=== PATIENT | female | born 1990 | race Caucasian/White ===

== ENCOUNTER 2022-01-01 17:04 | Inpatient (IN) | payer BC, SELFPAY ==
[2022-01-01 17:26] VITALS: PULSE 99; O2SAT 99
[2022-01-01 17:29] VITALS: RESP 18; TEMP 36.9
[2022-01-01 17:34] VITALS: BP 115/69; PULSE 95
[2022-01-01 17:54] VITALS: BMI 33.3
--- NOTE | 2022-01-01 18:18 | P.OBHP_ITS ---
OB - H&P: HPI Labor/Induction History of Present Illness Date Seen: 01/01/22 Chief Complaint: The patient is a 31 year old 2 para 1 at 40+2 weeks gestation by LMP and confirmed with 1st trimester US, who presents with elective induction at term. She has a history of shoulder dystocia with first baby. Chief complaint: Elective Induction : 2 Para: 1 Date of last menstrual period: 03/25/21 Estimated date of delivery: 12/30/21 Gestational age based on last menstrual period: 40 Narrative: Carolina Monae is a 31 year old female here for elective induction at term. has been uncomplicated. she is GBS negative, blood type 0 rH negative, rubella immune. History of Present Dating criteria: based on LMP care: good care Ultrasounds: normal 1st trimester US complications comment: anemia, treated with IV iorn Labs Rubella: immune RPR/VDLR: nonreactive GBS status: negative HBsAG: negative Review of Systems Status of ROS: Reports: 10 or more systems reviewed and unremarkable except as noted in History and below Meds Home Medications and Allergies Home Medication Comments: vitamins OB - H&P: Exam Physical Exam: Vital signs: Temp Pulse Resp BP Pulse Ox 98.5 F 95 18 115/69 99 01/01/22 17:29 01/01/22 17:34 01/01/22 17:29 01/01/22 17:34 01/01/22 17:26 Constitutional: Constitutional: no acute distress Routine HEENT Exam: Head: Present atraumatic and normal inspection Eye: Present EOMI ENT: Present mucous membranes moist Routine Neck Exam: Neck: Present full ROM Routine Respiratory Exam: Respiratory: Present CTA bilaterally Routine Cardiovascular Exam: Cardiovascular: RRR Routine Abdominal Exam: Comments: Gravid, appropriate for gestational age. EFW 8 pounds. Detailed Labor and Delivery Exam: Patient Gravid: yes Dilation (cm): 2 Effacement (%): 40 Cervix position: mid Consistency: soft Cervical ripeness score: 5 Contraction frequency (min): 0 Fetus (Single): Station: -3 Monitor Accelerations: Present Monitor Decelerations: None Nursing Home Variability: Moderate (11-25) Routine Extremities Exam: Comments: No swelling or tenderness Routine Skin Exam: Present intact Routine Neurological Exam: Present alert, oriented X3 and CN II-XII intact Routine Psychiatric Exam: Present normal affect OB - Problem Based A/P Additional Plan (1) Term : Status: Acute Plan Cook catheter placed without difficulty. 60 mL in both intrauterine and intravaginal balloons. Low dose pitocin overnight. AROM in the AM with continued pitocin. Delivery/Labor/Induction Plan Plan: induction Induction method: Intracervical balloon catheter
[2022-01-01 18:57] LABS: SARS PCR* Negative SARS-CoV-2 (Negative)
[2022-01-01 19:15] VITALS: BP 120/75; PULSE 90; RESP 16; TEMP 37.1
[2022-01-01] MEDS: hydrOXYzine pamoate 25 MG CAPSULE 100 MG PO (19:58)
[2022-01-01 23:23] VITALS: RESP 16; TEMP 36.6
[2022-01-01 23:24] VITALS: BP 136/76; PULSE 100
[2022-01-01] MEDS: LACTATED RINGERS 1000 ML 1,000 ML 125 ML IV (23:43)
[2022-01-01 23:50] LABS: Basophils Absolute Auto 0.03 K/uL (0.00-0.30); Basophils Percent Auto 0.3 % (0.0-3.0); Eosinophils Absolute Auto 0.09 K/uL (0.00-0.50); Hemoglobin* 10.9 gm/dL (12.0-16.0); Immature Granulocytes Abs Auto 0.06 K/uL (0.00-0.30); Lymphocytes Percent Auto 17.5 % (20-44); Mean Corpuscular HGB Conc 33 gm/dL (32-36); Mean Corpuscular Hemoglobin 28 pg (26-34); Mean Corpuscular Volume 84 fL (80-100); Monocytes Percent Auto 5.1 % (0.0-11.0); Neutrophils Percent Auto 75.4 % (42.0-72.0); Platelet Count* 196 K/uL (140-440); RDW Coefficient of Variation % 18.8 % (11.5-15.5); Red Blood Count 3.94 m/uL (4.00-5.20); White Blood Count* 8.69 K/uL (4.50-11.00)
[2022-01-01 23:51] LABS: Slide Review Reflex No
[2022-01-02] VITALS (74 sets, daily range): BP systolic 87–147; BP diastolic 50–113; PULSE 80–122; RESP 16–18; TEMP 36.3–37.5; O2SAT 96–100
[2022-01-02] MEDS: OXYTOCIN 30 unit/500 ML in NS 30 UNIT/500 ML BAG IVPB (00:24)
[2022-01-02] MEDS: LACTATED RINGERS 1000 ML 1,000 ML 125 ML IV (04:15)
[2022-01-02] MEDS: ROPIVACAINE 0.2% 100 ml 100 ML 12 MG EPIDURAL ×2 (06:08→14:12)
--- NOTE | 2022-01-02 06:23 | P.ANBPRC_ITS ---
[facility] Social History Smoking Status: Never smoker Meds Home Medications and Allergies Home Medications Medication Instructions Recorded Confirmed Type vit no.95-ferrous 1 tab PO DAILY 01/01/22 01/01/22 History fumarate 28 mg-folic acid 800 mcg tablet () Allergies Allergy/AdvReac Type Severity Reaction Status Date / Time lactose Allergy Mild Gastrointestinal Verified 01/01/22 19:42 Upset Results Labs Labs: Laboratory Results - last 24 hr 01/01/22 01/01/22 01/01/22 17:21 23:40 23:40 WBC 8.69 RBC 3.94 L Hgb 10.9 L Hct 33.0 MCV 84 MCH 28 MCHC 33 RDW Coeff of Fernanda 18.8 H Plt Count 196 Neut % (Auto) 75.4 H Lymph % (Auto) 17.5 L [place] % (Auto) 5.1 Eos % (Auto) 1.0 Baso % (Auto) 0.3 Neut # (Auto) 6.60 Lymph # (Auto) 1.50 [place] # (Auto) 0.40 Eos # (Auto) 0.09 Baso # (Auto) 0.03 Abs Immat Gran (auto) 0.06 SARS-CoV-2 (PCR) Negative SARS-CoV-2 Blood Type O Negative Antibody Screen NEGATIVE Vital Signs Vital Signs: Last Vital Signs Temp 98.4 F 01/02/22 05:25 Pulse 94 01/02/22 06:20 Resp 18 01/02/22 05:25 BP 98/54 L 01/02/22 06:20 Pulse Ox 100 01/02/22 06:03 Weight: 96.434 kg Height: 170.18 cm Anesthesia Procedures Epidural Insertion Patient Location: OB Start Time: 05:45 Stop Time: 06:45 Start Date: 01/02/22 Stop Date: 01/02/22 Reason for Block: procedure for pain Patient Position: sitting Performed By: Barry Blas Preanesthetic Checklist: IV checked, risks and benefits discussed, surgical consent, monitors and equipment checked, pre-op evaluation, timeout performed and anesthesia consent Prep: chlorhexidine gluconate Monitoring: blood pressure monitoring, continuous pulse oximetry and heart rate Approach: midline Vertebral Space: lumbar (1-5) Epidural Technique: RICK saline Needle Type: Tuohy needle Injection Technique: continuous catheter Needle gauge: 18 Needle Length (cm): 10 cm Needle Insertion Depth (cm): 6 Catheter Gauge: 20 Catheter Type: multi-orifice Catheter at skin depth (cm): 13 Test Dose Result: negative and lidocaine 1.5% with epinephrine 1 to 200,000
[2022-01-02] MEDS: LACTATED RINGERS 1000 ML 1,000 ML 525 ML IV (07:04)
--- NOTE | 2022-01-02 07:15 | PM.OBPNL ---
Pain Control Date Seen: 01/02/22 Pain control: epidural Comments: Carolina is doing well. She had SROM around 0420, cook catheter removed. Contractions became more uncomfortable at that time and epidural requested. She is now comfortable and resting. Contractions Monitor mode: External Contraction frequency: 2 Contraction pattern: Regular Contraction intensity: Moderate Pelvic Exam Dilation (cm): 7 Effacement (%): 70 Station: -2 Fetus (Single) Amniotic Membrane Status: SROM status: Category l Assessment and Plan Pitocin rate (mU/min): 5 Assessment: induction ongoing Plan: continue present management
[2022-01-02] MEDS: ONDANSETRON 2 MG/ML inj 4 MG IV (11:15)
--- NOTE | 2022-01-02 12:49 | PM.OBPNL ---
Pain Control Time Seen by Provider: 12:49 Date Seen: 01/02/22 Pain control: epidural Comments: Patient feeling more pressure. Epidural still working well for pain relief. She was noted to be 8/80/-2 with forebag. Underwent AROM with clear fluid. Contractions Monitor mode: External Contraction frequency: 2 Contraction pattern: Regular Contraction intensity: Moderate Pelvic Exam Dilation (cm): 8 Effacement (%): 80 Station: -2 Fetus (Single) Amniotic Membrane Status: SROM status: Category l Comments: AROM forebag, clear fluid Assessment and Plan Pitocin rate (mU/min): 0 Assessment: active labor Plan: continue present management Comments: Anticipate
--- NOTE | 2022-01-02 15:13 | PM.OBPRCVD ---
Procedure Delivery date: 01/02/22 Procedure Done: Global Events: Labor Induction Intrapartal Events: None Induction method: Intracervical balloon catheter Delivery augmentation: rupture of membranes (Forebag) Delivery monitor: external FHT and external uterine Route of delivery: Laceration description: Perineal - 1st Degree Delivery repair: Vicryl Estimated blood loss (mL): 100 Anesthesia type: Epidural Disposition: floor Narrative: Stage 1: Carolina is a who presented for IOL at 40+2 weeks. Dating based on known LMP and confirmed with first trimester US. She underwent cook catheter placement on the 01/01 and low dose piocin was started on 0000 on 01/02. She had SROM at 0423 and contractions became stronger at that time. She had an epidural for labor analgesia at 0600 and reached 10 cm at 1421 and she started pushing at 1432. Stage 2: A viable male infant was born at 1443 over an intact perineum. There was a loose nuchal cord reduced at the perineum and a second nuchal cord which delivered through. was placed on mom's abdomen. Due to poor respiratory effort, cord immediately doubly clamped and cut. brought to the warmer where he immediately cried. Stage 3: IV pitocin turned up after delivery of infant. And intact placenta with 3 vessel cord delivered at 1447. There was a 1st degree perineal laceration repaired in the usual fashion and sponge and need counts were correct. weight 9#7oz and apgars 6 and 9 at 1 and 5 minutes respectively. [place] Infant Gender: Male presentation: vertex Placental Delivery Description: Spontaneous Cord Description: 3 Vessels OB Vag Delivery Procedures Additional Procedures Cook Catheter Insertion: Yes Laceration Repair: Yes
[2022-01-02] MEDS: ACETAMINOPHEN 500 MG TABLET 1000 MG PO (20:07)
[2022-01-02] MEDS: IBUPROFEN 600 MG TABLET PO (22:09)
[2022-01-03] MEDS: ACETAMINOPHEN 500 MG TABLET 1000 MG PO ×2 (01:48→09:36)
[2022-01-03 01:50] VITALS: BP 103/68; PULSE 96; RESP 18; TEMP 36.6; O2SAT 97
[2022-01-03 03:40] VITALS: BP 110/75; PULSE 87; RESP 16; TEMP 36.8; O2SAT 97
[2022-01-03] MEDS: IBUPROFEN 600 MG TABLET PO (06:34)
[2022-01-03 07:12] LABS: Hemoglobin* 10.2 gm/dL (12.0-16.0)
--- NOTE | 2022-01-03 07:56 | P.DS_ITS ---
DS: Providers Provider Date Seen: 01/03/22 Date of admission: 01/01/22 17:04 Primary care physician: Tiffany Griffin MD Admitting Clinician: Tiffany Griffin MD Attending Physician on discharge: Tiffany Griffin MD Date of Discharge: 01/03/22 DS: Diagnosis Discharge Diagnosis (1) Vaginal delivery: Status: Acute DS: Medications Discharge Medications Other Medication Instructions: I will send in a Rx for zoloft Exam Const: Vital Signs, click to edit/add: Vital Signs - 24 hr 01/02/22 08:05 01/02/22 08:22 01/02/22 08:22 Temperature 98.4 F Pulse Rate 88 88 Pulse Rate [Pulse Oximeter] Respiratory Rate Blood Pressure 129/64 129/71 Blood Pressure [Ri ght Arm] Pulse Oximetry [facility] 01/02/22 08:36 01/02/22 08:50 01/02/22 09:23 Temperature Pulse Rate 89 94 82 Pulse Rate [Pulse Oximeter] Respiratory Rate Blood Pressure 128/70 129/69 92/50 L Blood Pressure [Ri ght Arm] Pulse Oximetry Oxygen Delivery [facility] 01/02/22 09:35 01/02/22 09:51 01/02/22 09:53 Temperature Pulse Rate 88 90 98 Pulse Rate [Pulse Oximeter] Respiratory Rate Blood Pressure 91/51 L 89/53 L 97/55 L Blood Pressure [Ri ght Arm] Pulse Oximetry [facility]xygen Delivery [facility] 01/02/22 10:07 01/02/22 10:21 01/02/22 10:36 Temperature Pulse Rate 96 94 101 H Pulse Rate [Pulse Oximeter] Respiratory Rate Blood Pressure 106/54 L 90/50 L 92/54 L Blood Pressure [Ri ght Arm] Pulse Oximetry Oxygen Delivery [facility] 01/02/22 10:51 01/02/22 10:53 01/02/22 11:13 Temperature Pulse Rate 117 H 110 H 86 Pulse Rate [Pulse Oximeter] Respiratory Rate Blood Pressure 87/51 L 91/55 L 108/58 L Blood Pressure [Ri ght Arm] Pulse Oximetry Oxygen Delivery [facility] 01/02/22 11:25 01/02/22 11:36 01/02/22 11:52 Temperature Pulse Rate 105 H 106 H 96 Pulse Rate [Pulse Oximeter] Respiratory Rate Blood Pressure 118/56 L 112/59 L 108/58 L Blood Pressure [Ri ght Arm] Pulse Oximetry Oxygen Delivery [facility] 01/02/22 12:06 01/02/22 12:21 01/02/22 12:36 Temperature Pulse Rate 109 H 112 H 116 H Pulse Rate [Pulse Oximeter] Respiratory Rate Blood Pressure 114/70 113/60 113/61 Blood Pressure [Ri ght Arm] Pulse Oximetry Oxygen Delivery [facility] 01/02/22 12:52 01/02/22 13:05 01/02/22 13:21 Temperature Pulse Rate 109 H 105 H 107 H Pulse Rate [Pulse Oximeter] Respiratory Rate Blood Pressure 122/70 118/67 120/64 Blood Pressure [Ri ght Arm] Pulse Oximetry Oxygen Delivery [facility] 01/02/22 13:36 01/02/22 13:51 01/02/22 14:06 Temperature Pulse Rate 105 H 114 H 102 H Pulse Rate [Pulse Oximeter] Respiratory Rate Blood Pressure 122/58 L 125/71 104/51 L Blood Pressure [Ri ght Arm] Pulse Oximetry Oxygen Delivery [facility] 01/02/22 14:22 01/02/22 14:37 01/02/22 14:51 Temperature Pulse Rate 108 H 103 H 112 H Pulse Rate [Pulse Oximeter] Respiratory Rate Blood Pressure 105/53 L 122/67 122/61 Blood Pressure [Ri ght Arm] Pulse Oximetry Oxygen Delivery [facility] 01/02/22 15:06 01/02/22 15:21 01/02/22 15:36 Temperature Pulse Rate 111 H 94 Pulse Rate [Pulse Oximeter] Respiratory Rate Blood Pressure 120/76 135/62 138/70 Blood Pressure [Ri ght Arm] Pulse Oximetry Oxygen Delivery [facility] 01/02/22 15:50 01/02/22 16:10 01/02/22 16:13 Temperature Pulse Rate 104 H 105 H 110 H Pulse Rate [Pulse Oximeter] Respiratory Rate Blood Pressure 125/79 147/113 H 121/59 L Blood Pressure [Ri ght Arm] Pulse Oximetry Oxygen Delivery [facility] 01/02/22 16:20 01/02/22 16:35 01/02/22 16:50 Temperature Pulse Rate 109 H 111 H 122 H Pulse Rate [Pulse Oximeter] Respiratory Rate Blood Pressure 122/68 124/61 131/69 Blood Pressure [Ri ght Arm] Pulse Oximetry Oxygen Delivery [facility] 01/02/22 17:05 01/02/22 17:12 01/02/22 09:08 Temperature 97.6 F Pulse Rate 116 H 116 H Pulse Rate [Pulse Oximeter] Respiratory Rate 16 Blood Pressure 121/63 118/64 Blood Pressure [Ri ght Arm] Pulse Oximetry Oxygen Delivery [facility] 01/02/22 10:53 01/02/22 14:00 01/02/22 20:00 Temperature 98.8 F 99.5 F 99.5 F Pulse Rate Pulse Rate [Pulse Oximeter] 112 H Respiratory Rate 16 16 Blood Pressure Blood Pressure [Ri ght Arm] 121/75 Pulse Oximetry 96 Oxygen Delivery [facility] Room Air 01/03/22 01:50 01/03/22 03:40 Temperature 97.9 F 98.3 F Pulse Rate Pulse Rate [Pulse Oximeter] 96 87 Respiratory Rate 18 16 Blood Pressure Blood Pressure [Ri ght Arm] 103/68 110/75 Pulse Oximetry 97 97 Oxygen Delivery [facility] Room Air Room Air Common normals: no apparent distress General appearance: cooperative and comfortable GI: Common normals: soft to palpation Palpation: soft : Other: Uterus firm 2 cm below umbilicus Extremity: Common normals: no calf tenderness and no pedal edema OB - DS: Summary Hospital Course Hospital Course: The patient is a 31 year old G 2 P 2 at 40+3 weeks gestation that was admitted to the Center on 01/01/22 for IOL at term. She had an uncomplicated vaginal delivery. She delivered a viable male infant. She is breast feeding. the patient has done well. Peripartum Data Infant delivery method: Vaginal Laceration description: Perineal - 1st Degree Episiotomy description: Midline complications: none [place] Infant Gender: Male Discharge Plan: Home Time Spent with Patient Time attestation: Total time spent providing and/or coordinating discharge services: Time spent: Less than 30 minutes Discharge Plan Discharge Disposition: Home, Self-Care Date of Admission: 01/01/22 17:04 Primary Care Provider: Tiffany Griffin Condition: Stable Anticipated Discharge Date/Time: 01/03/22 08:04 Discharge Medications: Continued PNV cmb#95-ferrous fumarate-FA [] 28 mg iron- 800 mcg tablet 1 tab PO DAILY Discharge Orders: Discharge Order (Routine); Ordered 01/03/22 Ordered By: Tiffany Griffin Patient Education: OB Vaginal/Breast Feeding Follow Up Appointments: Tiffany Griffin MD [Primary Care Provider] - Forms: [employer] Info Instructions
[2022-01-03 08:55] VITALS: BP 104/70; PULSE 92; RESP 16; TEMP 36.9; O2SAT 97
[2022-01-03] MEDS: DOCUSATE SODIUM 100 MG CAPSULE PO (09:36)
[2022-01-03 12:47] VITALS: BP 105/71; PULSE 88; RESP 16; TEMP 36.3; O2SAT 98
== END 2022-01-03 16:30 | disposition home or self-care (01) | DRG 560 ==
PROVIDERS: Admitting Provider Family Medicine; PCP Family Medicine; Visit Provider Family Medicine
DX: O48.0 Post-term pregnancy (principal); O70.0 First degree perineal laceration during delivery; O99.02 Anemia complicating childbirth; D64.9 Anemia, unspecified; Z3A.40 40 weeks gestation of pregnancy; Z37.0 Single live birth
CPT/HCPCS: 01967; 36415; 59200; 85018; 85025; 86850; 86900; 86901; 87635; A9270; C1726; J2405; J2795; J7120; S0020

== ENCOUNTER 2023-07-28 16:55 | Outpatient (CLI) | payer BC, SELFPAY ==
[2023-07-28 18:06] VITALS: BP 123/68; PULSE 95; RESP 16; TEMP 36.3
--- NOTE | 2023-07-28 19:17 | PC.OBNST ---
NST Note NST Note Start: 07/28/23 19:15 Freq: ONCE Status: Active Protocol: Document 07/28/23 19:15 ABP (Rec: 07/28/23 19:17 ABP [id number]) NST Note 3 Para (# of births) 2 EDC 08/09/23 Gestational Age In Weeks & Days 38 Weeks & 2 Days Patient Presented with Complaint(s) of Contractions/cramping Reactive Yes RN Jerel Olson RN Date 07/28/23 Reactive Yes SCOTT Nguyen, RN OB NST charge Yes Complete NST Note via Write Note Yes The provider's electronic signature indicates the NST is reactive/appropriate for gestational age. *Note to provider: If an addendum is required, open the patient's chart and click on the note under the Nurse/Allied Health tab.
== END 2023-07-28 19:11 | disposition home or self-care (01) ==
LOC: OB OUT 17:00 → OB 19:11
PROVIDERS: PCP Family Medicine; Visit Provider Family Medicine
DX: O47.1 False labor at or after 37 completed weeks of gestation (principal); Z3A.38 38 weeks gestation of pregnancy
CPT/HCPCS: 59025; G0463

== ENCOUNTER 2023-08-06 05:59 | Inpatient (IN) | payer BC, SELFPAY ==
[2023-08-06] VITALS (53 sets, daily range): BP systolic 99–193; BP diastolic 56–119; PULSE 72–176; RESP 14–18; TEMP 36.3–36.9; O2SAT 98–100; BMI 33.0
--- NOTE | 2023-08-06 06:47 | PM.OBHPLI ---
OB - H&P: HPI Labor/Induction History of Present Illness Date Seen: 08/06/23 Chief Complaint: The patient is a 33 year old 3 para 2 at 39+4 weeks gestation by LMP and confirmed with US, who presents for elective IOL. Chief complaint: Elective Induction Narrative: Carolina Monae is a 33 year old at 39+4 weeks for elective IOL. has been uncomplicated. She is GBS negative, rH negative, rubella immune. She reports no regular contractions or LOF. She does have a history of shoulder dystocia with her first delivery. EFW at 36 weeks 3147g (77%). She underwent AROM with return of a large amount of clear fluid. History of Present Dating criteria: based on LMP care: good care Ultrasounds: normal 1st trimester US and normal mid trimester US Medical complications: none Labs Blood type: 0 (-) negative Rubella: immune RPR/VDLR: nonreactive GBS status: negative HBsAG: negative Review of Systems Status of ROS: Reports: 6 or more systems reviewed and unremarkable except as noted in History and below Meds Home Medications and Allergies Home Medications Medication Instructions Recorded Confirmed Type vit no.95-ferrous 1 tab PO DAILY 01/01/22 08/06/23 History fumarate 28 mg-folic acid 800 mcg tablet () Allergies Allergy/AdvReac Type Severity Reaction Status Date / Time lactose Allergy Mild Gastrointestinal Verified 07/28/23 18:04 Upset OB - H&P: Exam Constitutional: Constitutional: no acute distress Routine HEENT Exam: Head: Present atraumatic Eye: Present EOMI and PERRL ENT: Present mucous membranes moist Routine Neck Exam: Neck: Present full ROM Routine Respiratory Exam: Respiratory: Present CTA bilaterally Routine Cardiovascular Exam: Cardiovascular: RRR Routine Exam: Perineum Description: Normal Detailed Labor and Delivery Exam: Patient Gravid: Yes Dilation (cm): 4 Effacement (%): 40 Cervix position: posterior Consistency: soft Cervical ripeness score: 7 Fetus (Single): Station: -2 Amniotic Membrane Status: AROM Amniotic Membrane Fluid Description: Clear Heart Rate Baseline: 130 Monitor Accelerations: Present Monitor Decelerations: None [employer] Variability: Moderate (6-25) Routine Extremities Exam: Extremities: Present full ROM Routine Skin Exam: Present intact and normal turgor Routine Neurological Exam: Present alert, oriented X3 and CN II-XII intact Routine Psychiatric Exam: Present normal affect OB - Problem Based A/P Additional Plan (1) Term : Status: Acute Plan Patient has undergone AROM, if she does not go into labor, will start pitocin. Epidural per patient request. Anticipate . Delivery/Labor/Induction Plan Induction method: AROM
[2023-08-06 07:08] LABS: Basophils Absolute Auto 0.03 K/uL (0.00-0.30); Basophils Percent Auto 0.5 % (0.0-3.0); Eosinophils Absolute Auto 0.06 K/uL (0.00-0.50); Hematocrit 31.8 % (33.0-51.0); Hemoglobin* 10.2 gm/dL (12.0-16.0); Lymphocytes Absolute Auto 1.28 K/uL (0.90-2.90); Lymphocytes Percent Auto 21.6 % (20-44); Mean Corpuscular HGB Conc 32 gm/dL (32-36); Mean Corpuscular Hemoglobin 25 pg (26-34); Mean Corpuscular Volume 78 fL (80-100); Monocytes Percent Auto 5.4 % (0.0-11.0); Neutrophils Absolute Auto 4.24 K/uL (1.7-7.0); Neutrophils Percent Auto 71.5 % (42.0-72.0); Platelet Count* 213 K/uL (140-440); RDW Coefficient of Variation % 14.8 % (11.5-15.5); Red Blood Count 4.06 m/uL (4.00-5.20); White Blood Count* 5.93 K/uL (4.50-11.00)
[2023-08-06 07:09] LABS: Slide Review Reflex No
[2023-08-06] MEDS: LACTATED RINGERS 1000 ML 1,000 ML 125 ML IV ×2 (12:11→15:53)
[2023-08-06] MEDS: OXYTOCIN 30 unit/500 ML in NS 30 UNIT/500 ML BAG IVPB (12:13)
[2023-08-06] MEDS: ACETAMINOPHEN 500 MG TABLET 1000 MG PO ×2 (12:25→21:34)
--- NOTE | 2023-08-06 14:58 | P.ANBPRC_ITS ---
[facility] Medical History (Updated 08/06/23 @ 06:57 by Tiffany Griffin MD) Term ?Z34.90 - Encounter for supervision of normal , unspecified, unspecified trimester (ICD-10) Vaginal delivery ?O80 - Encounter for full-term uncomplicated delivery (ICD-10) Social History What is your current living situation?: I presently have a place to live Problems where you live: no known problems In the past 12 months, utilities in danger of being shut off: no In past 12 months, lack of transportation kept you from medical appts, meetings, work, or getting things needed for daily living: no In the past 12 mos, have been you worried that your food would run out before you had money to buy more?: never true In the past 12 mos, the food you bought just didn't last and you didn't have money to buy more?: never true Smoking Status: Never smoker How often does anyone, including family, friends and others, physically hurt you : never How often does anyone, including family, friends and others, insult or talk down to you: never How often does anyone, including family, friends and others, threaten you with harm: never How often does anyone, including family, friends and others, scream or curse at you: never Meds Home Medications and Allergies Home Medications Medication Instructions Recorded Confirmed Type vit no.95-ferrous 1 tab PO DAILY 01/01/22 08/06/23 History fumarate 28 mg-folic acid 800 mcg tablet () Allergies Allergy/AdvReac Type Severity Reaction Status Date / Time lactose Allergy Mild Gastrointestinal Verified 07/28/23 18:04 Upset Results Labs Labs: Laboratory Results - last 24 hr 08/06/23 06:52 WBC 5.93 RBC 4.06 Hgb 10.2 L Hct 31.8 L MCV 78 L MCH 25 L MCHC 32 RDW Coeff of Fernanda 14.8 Plt Count 213 Neut % (Auto) 71.5 Lymph % (Auto) 21.6 [place] % (Auto) 5.4 Eos % (Auto) 1.0 Baso % (Auto) 0.5 Neut # (Auto) 4.24 Lymph # (Auto) 1.28 [place] # (Auto) 0.30 Eos # (Auto) 0.06 Baso # (Auto) 0.03 Abs Immat Gran (auto) 0.00 Imm/Tot Granulo (auto) 0.0 Blood Type O Negative Antibody Screen POSITIVE Vital Signs Vital Signs: Last Vital Signs Temp 98.4 F 08/06/23 13:06 Pulse 91 08/06/23 14:57 BP 122/70 08/06/23 14:57 Pulse Ox 99 08/06/23 14:56 Weight: 95.708 kg Height: 170.18 cm Anesthesia Procedures Epidural Insertion Patient Location: OB Start Time: 14:15 Stop Time: 14:59 Start Date: 08/06/23 Stop Date: 08/06/23 Reason for Block: procedure for pain Patient Position: sitting Performed By: Melchor Diaz Preanesthetic Checklist: IV checked, risks and benefits discussed, monitors and equipment checked, pre-op evaluation, timeout performed and anesthesia consent Prep: chlorhexidine gluconate Monitoring: blood pressure monitoring, continuous pulse oximetry and heart rate Approach: midline Vertebral Space: lumbar (1-5) Epidural Technique: RICK saline Needle Type: Tuohy needle Injection Technique: continuous catheter Needle gauge: 17 Needle Length (cm): 10 cm Needle Insertion Depth (cm): 7 Catheter Gauge: 19 Catheter Type: multi-orifice Catheter at skin depth (cm): 13 Test Dose Result: negative and lidocaine 1.5% with epinephrine 1 to 200,000
[2023-08-06] MEDS: ROPIVACAINE 0.2% 100 ml 100 ML 12 MG EPIDURAL (15:03)
--- NOTE | 2023-08-06 16:04 | PM.OBPNL ---
Subjective Date Seen: 08/06/23 Narrative: Carolina is a at 39+4 weeks here for elective IOL. She underwent AROM at about 0630 and was subsequently having contractions, however they remained mild with minimal cervical change after 4 hours. IV pitocin was started and this caused increased intensity and patient received an epidural for labor analgesia. She is now comfortable, but feeling rectal pressure. Objective Vital Signs: Last Vital Signs Temp 97.4 F L 08/06/23 15:04 Pulse 95 08/06/23 16:00 BP 99/58 L 08/06/23 16:00 Pulse Ox 99 08/06/23 15:26 Pelvic Exam Dilation (cm): 7 Effacement (%): 60 Station: -1 Contractions Monitor mode: External Contraction Frequency: 2-3 Contraction pattern: Regular Contraction intensity: Strong/Firm Pitocin Rate (mU/min): 4 Assessment Assessment: active labor Station: -2 Amniotic Membrane Status: AROM Status: Category l Heart Rate Baseline: 120 Manager Workers Compensation Variability: Moderate (6-25) Monitor Accelerations: Present Monitor Decelerations: None Plan Plan: Continue pitocin per protocol. Anticipate .
[2023-08-06] MEDS: ONDANSETRON 2 MG/ML inj 4 MG IV (17:07)
--- NOTE | 2023-08-06 17:26 | P.OBPN_ITS ---
Subjective Date Seen: 08/06/23 Narrative: Carolina is feeling some rectal pressure and is starting to feel contractions as well. Having nausea and a mild headache. Zofran and bolus on epidural have helped. Objective Vital Signs: Last Vital Signs Temp 98 F 08/06/23 16:00 Pulse 73 08/06/23 17:16 BP 111/64 08/06/23 17:16 Pulse Ox 99 08/06/23 15:26 Pelvic Exam Dilation (cm): 8 Effacement (%): 100 Station: 0 Contractions Monitor mode: External Contraction pattern: Regular Contraction intensity: Strong/Firm Pitocin Rate (mU/min): 8 Assessment Assessment: active labor Station: -2 Amniotic Membrane Status: AROM Status: Category l Heart Rate Baseline: 130 Senior Living Variability: Moderate (6-25) Monitor Accelerations: Present Monitor Decelerations: None Plan Plan: Continue pitocin per protocol. Anticipate .
--- NOTE | 2023-08-06 18:13 | W.PM.VAGD1_ITS ---
Procedure Delivery date: 08/06/23 Procedure Done: Global Delivery augmentation: pitocin Delivery monitor: external FHT and external uterine Route of delivery: Laceration description: Perineal - 1st Degree Delivery repair: Vicryl Estimated blood loss (mL): 300 Anesthesia type: Epidural Narrative: The patient is a 33 year-old admitted on 08/06/2023 at 39 Weeks, 4 Days gestation for elective IOL.? Cervical exam on admission was 4 cm/40 % effaced/-3 station with membranes intact in vertex presentation.? Contractions were absent.? heart rate demonstrated baseline 130 bpm with moderate variability, + accelerations, - decelerations; a category 1 tracing.? AROM occurred at 0637 with clear fluid. ? Labor Analgesia:? epidural ? Pitocin:? yes ? Labor onset:? 1353 ? Complete:? 1742 ? Pushing:? 1749 ? heart tones during second stage were catgory 1. ? At 1750 a viable male infant delivered in vertex OA presentation over intact perineum via spontaneous vaginal delivery.? Infant was placed on maternal abdomen.? Cord was clamped and cut after a 30-60 second delay.? Nose and mouth were bulb suctioned.? Infant weight pending.? 8 at 1 minute and 9 at 5 minutes.? Shoulder dystocia: no.? Nuchal cord: no. ? Placenta delivered spontaneously and complete at 1753 with a 3 vessel cord. ? Mother and were stable after delivery. ? Lacerations:? 1st degree, repaired with 3-0 vicryl suture. ? Blood loss: 300 mL. Blood loss measurement type: QBL ? Sponge and needles counts are correct. [place] Infant Gender: Male presentation: vertex Placental Delivery Description: Spontaneous Cord Description: 3 Vessels
[2023-08-07] MEDS: IBUPROFEN 600 MG TABLET PO (00:29)
[2023-08-07 00:31] VITALS: BP 115/81; PULSE 68; RESP 16; TEMP 36.4; O2SAT 97
[2023-08-07] MEDS: ACETAMINOPHEN 500 MG TABLET 1000 MG PO (04:53)
[2023-08-07 05:15] VITALS: BP 133/85; PULSE 70; RESP 16; TEMP 36.4; O2SAT 97
--- NOTE | 2023-08-07 07:48 | PM.OBPNVD1 ---
OB - PN:Subj Subjective Time Seen by Provider: 07:40 Date Seen: 08/07/23 Interval history: Pt seen in routine rounds. pt notes uterine cramping with feeds. Lochia noted as small per nursing. pt is ambulating, voiding, tolerating orals. No concerns. Reports latching going well OB - PN: Obj Exam Physical Exam: Vital signs: Temp Pulse Resp BP Pulse Ox O2 Del Method 97.5 F L 70 16 133/85 97 Room Air 08/07/23 05:15 08/07/23 05:15 08/07/23 05:15 08/07/23 05:15 08/07/23 05:15 08/07/23 05:15 Constitutional: Constitutional: no acute distress and cooperative Routine Abdominal Exam: Fundus: Present firm (below umbilicus) OB - PN: Obj Data Labs Labs: Laboratory Results - last 24 hr 08/06/23 08/07/23 06:52 06:10 Hgb 9.0 L Blood Type O Negative Antibody Screen POSITIVE OB - PN: A/P Delivery Assessment and Plan (1) Term : Status: Acute Plan Plan: routine care Comments: Continue routine care. Will see how today goes and possibly home after 24hours tonight or tomorrow
[2023-08-07 09:26] VITALS: BP 117/80; PULSE 70; RESP 16; TEMP 36.6; O2SAT 97
[2023-08-07] MEDS: DOCUSATE SODIUM 100 MG CAPSULE PO (09:31)
[2023-08-07 13:03] VITALS: BP 123/78; PULSE 70; RESP 16; TEMP 36.3
[2023-08-07 15:51] VITALS: BP 111/71; PULSE 70; RESP 16; TEMP 36.8
--- NOTE | 2023-08-07 17:25 | P.DS_ITS ---
DS: Providers Provider Time Seen by Provider: 07:25 Date Seen: 08/07/23 Date of admission: 08/06/23 05:59 Primary care physician: Tiffany Griffin MD Admitting Clinician: Tiffany Griffin MD Attending Physician on discharge: Tiffany Griffin MD Date of Discharge: 08/07/23 Exam Const: Vital Signs, click to edit/add: Vital Signs - 24 hr 08/06/23 17:31 08/06/23 17:31 08/06/23 17:57 Temperature Pulse Rate 80 176 H Pulse Rate [Pulse Oximeter] Respiratory Rate 14 Blood Pressure 123/68 193/119 H Blood Pressure [Ri ght Arm] [facility] 18:00 08/06/23 18:01 08/06/23 18:15 Temperature Pulse Rate 84 86 Pulse Rate [Pulse Oximeter] 84 Respiratory Rate 16 Blood Pressure 132/60 133/62 Blood Pressure [Ri ght Arm] 132/60 Pulse Oximetry [facility]23 18:15 08/06/23 18:30 08/06/23 18:30 Temperature 98.4 F Pulse Rate 78 Pulse Rate [Pulse Oximeter] 86 84 Respiratory Rate 16 16 Blood Pressure 132/56 L Blood Pressure [Ri ght Arm] 133/62 132/60 Pulse Oximetry [facility] 08/[facility]/23 18:45 08/06/23 18:45 08/06/23 19:00 Temperature Pulse Rate 77 85 Pulse Rate [Pulse Oximeter] 77 Respiratory Rate 16 Blood Pressure 127/64 115/57 L Blood Pressure [Ri ght Arm] 127/64 Pulse Oximetry [facility] 08[facility] 19:00 08/06/23 19:15 08/06/23 19:17 Temperature Pulse Rate 80 Pulse Rate [Pulse Oximeter] 80 Respiratory Rate 16 16 Blood Pressure 120/79 Blood Pressure [Ri ght Arm] 115/57 L Pulse Oximetry [facility] 08/[facility]/23 19:30 08/06/23 19:30 08/06/23 19:45 Temperature Pulse Rate 82 81 Pulse Rate [Pulse Oximeter] Respiratory Rate 16 Blood Pressure 113/72 128/71 Blood Pressure [Ri ght Arm] Pulse Oximetry [facility]23 19:45 08/06/23 20:00 08/07/23 00:31 Temperature 97.5 F L Pulse Rate 82 Pulse Rate [Pulse Oximeter] 68 Respiratory Rate 16 16 Blood Pressure 129/61 Blood Pressure [Ri ght Arm] 115/81 Pulse Oximetry 97 Oxygen Delivery Me thod Room Air 08/07/23 05:15 08/07/23 09:26 08/07/23 13:03 Temperature 97.5 F L 97.9 F 97.4 F L Pulse Rate Pulse Rate [Pulse Oximeter] 70 70 70 Respiratory Rate 16 16 16 Blood Pressure Blood Pressure [Ri ght Arm] 133/85 117/80 123/78 Pulse Oximetry 97 97 Oxygen Delivery Me thod Room Air Room Air 08/07/23 15:51 Temperature 98.2 F Pulse Rate Pulse Rate [Pulse Oximeter] 70 Respiratory Rate 16 Blood Pressure Blood Pressure [Ri ght Arm] 111/71 Pulse Oximetry Oxygen Delivery Me thod Common normals: no apparent distress, healthy appearing, alert and well nourished General appearance: cooperative and comfortable : Uterus: U/1 and firm Neuro: Sensorium/orientation: alert OB - DS: Summary Hospital Course Hospital Course: The patient is a 33 year old G 3 P 2 at 39 4/7 weeks gestation that was admitted to the Center on 08/06/23 for elective induction. see H&P and delivery note for details. She had an uncomplicated vaginal delivery. She delivered a viable male infant. She is . the patient has done well. Peripartum Data delivery method: Vaginal complications: none [place] Gender: Male Time Spent with Patient Time attestation: Total time spent providing and/or coordinating discharge services: Discharge Plan Discharge Disposition: Home, Self-Care Date of Admission: 08/06/23 05:59 Primary Care Provider: Tiffany Griffin Condition: Stable Anticipated Discharge Date/Time: 08/07/23 18:00 Discharge Medications: New acetaminophen 500 mg Tablet 1,000 mg PO Q6H PRNQty: 30 0RF docusate sodium 100 mg Capsule 100 mg PO DAILY Qty: 30 0RF ibuprofen 600 mg Tablet 600 mg PO Q6H PRNQty: 30 0RF ferrous sulfate 325 mg (65 mg iron) tablet 325 mg PO DAILY Qty: 30 0RF cholecalciferol (vitamin D3) [Vitamin D3] 50 mcg (2,000 unit) capsule 4,000 unit PO DAILY Qty: 180 3RF Continued PNV [id number] fumarate-FA [] 28 mg iron- 800 mcg tablet 1 tab PO DAILY Discharge Orders: Discharge Order (Routine); Ordered 08/07/23 Ordered By: Sandrita Mack Patient Education: OB Vaginal/Breast Feeding Activity Level: Activity as Tolerated Activity Detail: Pelvic rest x 6 weeks Discharge Diet: Regular Follow Up Appointments: Tiffany Griffin MD [Primary Care Provider] - (follow up for 6 week visit) Forms: MyHealth Info Instructions
[2023-08-07 18:17] VITALS: BP 111/71
[2023-08-08 08:10] LABS: Rapid Plasma Reagin (RPR) Non Reactive (Non Reactive)
== END 2023-08-07 18:59 | disposition home or self-care (01) | DRG 560 ==
PROVIDERS: Admitting Provider Family Medicine; PCP Family Medicine; Visit Provider Family Medicine
DX: O70.0 First degree perineal laceration during delivery (principal); Z3A.39 39 weeks gestation of pregnancy; Z37.0 Single live birth; O26.893 Other specified pregnancy related conditions, third trimester; Z67.41 Type O blood, Rh negative
CPT/HCPCS: 01967; 36415; 85018; 85025; 85461; 86592; 86850; 86870; 86880; 86900; 86901; A9270; J0665; J2371; J2405; J2791; J2795; J7120

== ENCOUNTER 2023-10-25 01:58 | Outpatient (CLI) | payer BC, SELFPAY | END 2023-11-13 01:59 | disposition home or self-care (01) | LOC: AMB 11-28 13:32 | PROVIDERS: PCP Family Medicine; Visit Provider Internal Medicine | DX: T14.8XXA Other injury of unspecified body region, initial encounter (principal); R06.09 Other forms of dyspnea; V48.0XXA Car driver injured in noncollision transport accident in nontraffic accident, initial encounter; Y92.410 Unspecified street and highway as the place of occurrence of the external cause | CPT/HCPCS: A0427 ==

== ENCOUNTER 2024-04-08 12:30 | Outpatient (RCR) | payer BC, SELFPAY | END 2024-07-28 15:34 | disposition home or self-care (01) | PROVIDERS: PCP Family Medicine; Visit Provider Physician Assistant | DX: M54.12 Radiculopathy, cervical region (principal); Z98.1 Arthrodesis status; Z51.89 Encounter for other specified aftercare | CPT/HCPCS: 97110; 97162 ==